=== PATIENT | female | born 1990 | race Caucasian/White ===

== ENCOUNTER 2024-09-22 13:49 | Emergency (ER) | payer OTHER ==
[~2024-09-22] VITALS: Ht 144.8 cm; Wt 61.2 kg
[2024-09-22 14:34] VITALS: BP 108/73; TEMP 98
[2024-09-22] MEDS ORDERED: AMOX-430 PO (15:17)
[2024-09-22] MEDS ORDERED: IBUP-1490 PO (15:17)
[2024-09-22 15:22] VITALS: O2SAT 97
== END 2024-09-22 15:23 | disposition home or self-care (01) ==
LOC: ER 13:56
DX: R68.84 Jaw pain (principal)